=== PATIENT | male | born 1950 | race Caucasian/White ===

== ENCOUNTER 2024-04-18 16:00 | Inpatient (IN) | payer MEDICARE ==
[~2024-04-18] VITALS: Ht 165.1 cm; Wt 77.9 kg
[2024-04-18 17:23] LABS: BASO # 0.1 10^3/uL (0.0-0.2); BASO % 0.4 % (0.0-1.0); EOS % 0.1 % (0.0-3.0); HEMATOCRIT 43.7 % (42.0-52.0); HEMOGLOBIN 14.7 g/dl (13.5-17.5); LYMPH # 0.7 10^3/uL (1.5-5.0); LYMPH % 4.6 % (24.0-44.0); MEAN CORPUSCULAR HEMOGLOBIN 32.2 pg (27.0-33.0); MEAN CORPUSCULAR HGB CONC 33.6 g/dl (32.0-36.5); MEAN CORPUSCULAR VOLUME 95.8 fl (80.0-96.0); MONO % 6.4 % (2.0-8.0); NEUTROPHILS # 13.8 10^3/uL (1.5-8.5); NEUTROPHILS % 87.7 % (36.0-66.0); PLATELET COUNT, AUTOMATED 203 10^3/uL (150-450); RED BLOOD COUNT 4.56 10^6/uL (4.30-6.10); WHITE BLOOD COUNT 15.7 10^3/uL (4.0-10.0)
[2024-04-18 17:24] LABS: ALBUMIN 3.4 G/DL (3.2-5.2); BILIRUBIN,DIRECT 0.3 MG/DL (<0.4); BILIRUBIN,TOTAL 0.9 MG/DL (0.3-1.2); CALCIUM LEVEL 8.8 MG/DL (8.3-10.6); CK-MB VALUE MASS 5.7 NG/ML (<3.6); CREATININE FOR GFR 1.34 MG/DL (0.70-1.30); GLOMERULAR FILTRATION RATE 55.6 (>42); POTASSIUM SERUM 4.3 MMOL/L (3.5-5.1); TOTAL PROTEIN 6.7 G/DL (5.7-8.2)
[2024-04-18 17:27] LABS: FREE T4 1.3 NG/DL (0.89-1.76)
[2024-04-18 17:28] LABS: MB/CK RELATIVE INDEX 1.63 (< OR =4); THYROID STIMULATING HORMONE 0.904 uIU/ML (0.55-4.78)
[2024-04-18] MEDS: fentaNYL 100 MCG/2 ML INJECTION IV ONE (17:39)
[2024-04-18] MEDS: BOOSTRIX VACCINE (TETANUS/DIPHTH/ACEL. PERTUSSIS) 0.5ML SYR IM.IMMUN ONE (18:00)
[2024-04-18] MEDS: METOPROLOL 5 MG/5 ML VIAL IV SCH (18:01)
[2024-04-18] MEDS: METOPROLOL TART 50 MG TAB PO ONE (18:01)
[2024-04-18] MEDS ORDERED: ISOVUE-370 76% 100ML VIAL As Ordered ONE (18:13)
[2024-04-18] MEDS: LOSARTAN 50MG TABLET PO ONE (18:56)
[2024-04-18] MEDS ORDERED: CYAN500T3 PO (19:00)
[2024-04-18] MEDS ORDERED: CENT50TA PO (19:00)
[2024-04-18] MEDS ORDERED: THERTAB19 PO (19:00)
[2024-04-18] MEDS ORDERED: ALEV220T22 PO (19:01)
[2024-04-18] MEDS ORDERED: HOME MED LIST COMPLETE! XX SCH (19:05)
[2024-04-18 20:20] VITALS: BP 132/95
[2024-04-18] MEDS ORDERED: HYDROMORPHONE HCL 0.5 MG/ 0.5 ML SYRINGE IV PRN (20:35)
[2024-04-18] MEDS: IPRATROPIUM 0.5MG/ALBUTEROL 2.5MG INH SOL UD 3ML (DUONEB) NEB PRN (20:42)
[2024-04-18] MEDS: HYDROMORPHONE HCL 0.5 MG/ 0.5 ML SYRINGE IV PRN (20:47)
[2024-04-18] MEDS: NITROGLYCERIN 2% OINT 1 GM *U/D* PKT TOP ONE (20:59)
[2024-04-18] MEDS: FUROSEMIDE 40MG/4ML VIAL IV ONE (20:59)
[2024-04-18] MEDS: NITROGLYCERIN 0.4MG SUBL TABLET SL STA (20:59)
[2024-04-18] MEDS ORDERED: LORazepam 2 MG/ML 1ML VIAL IV PRN (21:00)
[2024-04-18] MEDS ORDERED: LABETALOL 100MG/20ML VIAL IV PRN (21:10)
[2024-04-18] MEDS: DOXYCYCLINE HYCLATE 100 MG in D5W MINI-BAG PLUS 100 ML IV SCH (21:13)
[2024-04-18] MEDS: LORazepam 2 MG/ML 1ML VIAL IV STA (21:13)
[2024-04-18] MEDS: cefTRIAXone SOD 2 GM in D5W MINI-BAG PLUS 50 ML IV ONE (21:14)
[2024-04-18] MEDS: THIAMINE 200MG 2ML VIAL IV SCH (21:17)
[2024-04-18] MEDS: ENOXAPARIN 60MG/0.6ML SYRINGE (J1650 PER 10MG) SC SCH (21:17)
[2024-04-18 21:26] LABS: PROCALCITONIN 0.41 ng/ml
[2024-04-18] MEDS: guaiFENesin ER TABLET 600 MG TAB PO SCH (21:27)
[2024-04-18] MEDS: methylPREDNISolone 40MG 1ML VIAL IV SCH (22:14)
[2024-04-18 22:20] VITALS: BP 132/95; TEMP 97.8; O2SAT 98
[2024-04-18 22:30] VITALS: BP 132/95; O2SAT 97
[2024-04-18 22:39] LABS: INR 1.25; PARTIAL THROMBOPLASTIN TIME 29.6 SECONDS (24.8-34.2); PROTHROMBIN TIME 15.3 SECONDS (12.5-14.5)
[2024-04-18 23:30] VITALS: O2SAT 98
[2024-04-19] VITALS (33 sets, daily range): BP systolic 148–170; BP diastolic 78–102; PULSE 82; TEMP 97–98.4; O2SAT 84–99
[2024-04-19 06:23] LABS: HEMATOCRIT 40.4 % (42.0-52.0); HEMOGLOBIN 13.6 g/dl (13.5-17.5); MEAN CORPUSCULAR HGB CONC 33.7 g/dl (32.0-36.5); MEAN CORPUSCULAR VOLUME 95.1 fl (80.0-96.0); PLATELET COUNT, AUTOMATED 196 10^3/uL (150-450); RED BLOOD COUNT 4.25 10^6/uL (4.30-6.10); WHITE BLOOD COUNT 12.5 10^3/uL (4.0-10.0)
[2024-04-19 07:31] LABS: BILIRUBIN,TOTAL 1.1 MG/DL (0.3-1.2); CALCIUM LEVEL 8.6 MG/DL (8.3-10.6); CREATININE FOR GFR 1.4 MG/DL (0.70-1.30); GLOMERULAR FILTRATION RATE 52.9 (>42); POTASSIUM SERUM 4.4 MMOL/L (3.5-5.1)
[2024-04-19] MEDS ORDERED: ENOXAPARIN 40MG/0.4ML SYRINGE (J1650 PER 10MG) SC SCH (09:00)
[2024-04-19] MEDS ORDERED: METOPROLOL TART 50 MG TAB PO SCH (09:00)
[2024-04-19] MEDS: NICOTINE 21MG/24HR 1 EA TRANSDERMAL TD SCH (10:12)
[2024-04-19] MEDS: FOLIC ACID 1MG TAB PO SCH (10:12)
[2024-04-19] MEDS: PANTOPRAZOLE 40MG TAB (PROTONIX) PO SCH (10:13)
[2024-04-19] MEDS: cefTRIAXone SOD 1 GM in D5W MINI-BAG PLUS 50 ML IV SCH (10:14)
[2024-04-19] MEDS: MULTIVITAMINS/MINERALS THERAP 1 TAB PO SCH (10:14)
[2024-04-19] MEDS: METOPROLOL TART 25 MG TABLET PO SCH (10:32)
[2024-04-19] MEDS: BACITRACIN OINTMENT 30GM TUBE TOP SCH (13:27)
[2024-04-19] MEDS: LORazepam 2 MG TAB PO PRN (16:10)
[2024-04-19] MEDS: TAMSULOSIN 0.4 MG CAP PO SCH (20:47)
[2024-04-20] VITALS (20 sets, daily range): BP systolic 152–174; BP diastolic 94–104; TEMP 97.4–98.6; O2SAT 94–98
[2024-04-20 06:36] LABS: HEMATOCRIT 40.5 % (42.0-52.0); HEMOGLOBIN 13.8 g/dl (13.5-17.5); LYMPH # 1.5 10^3/uL (1.5-5.0); LYMPH % 6.9 % (24.0-44.0); MEAN CORPUSCULAR HEMOGLOBIN 31.9 pg (27.0-33.0); MEAN CORPUSCULAR HGB CONC 34.1 g/dl (32.0-36.5); MEAN CORPUSCULAR VOLUME 93.8 fl (80.0-96.0); MONO # 1.5 10^3/uL (0.0-0.8); NEUTROPHILS % 85.4 % (36.0-66.0); PLATELET COUNT, AUTOMATED 219 10^3/uL (150-450); RED BLOOD COUNT 4.32 10^6/uL (4.30-6.10); WHITE BLOOD COUNT 21.1 10^3/uL (4.0-10.0)
[2024-04-20 06:57] LABS: CALCIUM LEVEL 8.6 MG/DL (8.3-10.6); CREATININE FOR GFR 1.58 MG/DL (0.70-1.30); POTASSIUM SERUM 4.5 MMOL/L (3.5-5.1)
[2024-04-20] MEDS: FUROSEMIDE 40MG/4ML VIAL IV ONE (08:29)
[2024-04-20] MEDS: OXAZEPAM 15MG CAP PO SCH (08:31)
[2024-04-20] MEDS: FUROSEMIDE 40MG/4ML VIAL IV SCH (17:32)
[2024-04-20] MEDS: DOXYCYCLINE HYCLATE 100MG TABLET PO SCH (20:04)
[2024-04-20] MEDS: APIXABAN 5 MG TAB (ELIQUIS) PO SCH (20:05)
[2024-04-20 22:56] LABS: APPEARANCE, URINE CLOUDY (CLEAR); BACTERIA, URINE AUTO NEGATIVE (NEGATIVE); BILIRUBIN, URINE AUTO NEGATIVE (NEGATIVE); BLOOD, URINE BLOOD 2+ (NEGATIVE); COLOR, URINE AMBER (YELLOW); GLUCOSE, URINE (UA) AUTO NEGATIVE (NEGATIVE); KETONE, URINE AUTO NEGATIVE (NEGATIVE); LEUKOCYTE ESTERASE, URINE AUTO NEGATIVE (NEGATIVE); MUCUS, URINE SMALL (NEGATIVE); NITRITE, URINE AUTO NEGATIVE (NEGATIVE); PROTEIN, URINE AUTO 2+ mg/dL (NEGATIVE); RBC, URINE AUTO TNTC /HPF (0-3); SPECIFIC GRAVITY URINE AUTO 1.013 (1.002-1.035); SQUAMOUS EPITHELIAL CELL UR AU 0 /HPF (0-6); UROBILINOGEN, URINE AUTO 0.2 mg/dL (0.0-2.0); WBC, URINE AUTO 0 /HPF (0-3)
[2024-04-21] VITALS (27 sets, daily range): BP systolic 154–182; BP diastolic 84–110; TEMP 97.3–98.3; O2SAT 95–100
[2024-04-21 05:04] LABS: BASO % 0.3 % (0.0-1.0); EOS # 0.1 10^3/uL (0.0-0.5); EOS % 0.5 % (0.0-3.0); HEMATOCRIT 41.3 % (42.0-52.0); LYMPH # 1.6 10^3/uL (1.5-5.0); LYMPH % 12.2 % (24.0-44.0); MEAN CORPUSCULAR HGB CONC 33.9 g/dl (32.0-36.5); MEAN CORPUSCULAR VOLUME 94.5 fl (80.0-96.0); MONO # 1.1 10^3/uL (0.0-0.8); MONO % 8.4 % (2.0-8.0); NEUTROPHILS # 10.5 10^3/uL (1.5-8.5); NEUTROPHILS % 78.2 % (36.0-66.0); PLATELET COUNT, AUTOMATED 219 10^3/uL (150-450); RED BLOOD COUNT 4.37 10^6/uL (4.30-6.10); WHITE BLOOD COUNT 13.4 10^3/uL (4.0-10.0)
[2024-04-21 05:24] LABS: CALCIUM LEVEL 8.6 MG/DL (8.3-10.6); CREATININE FOR GFR 1.94 MG/DL (0.70-1.30); GLOMERULAR FILTRATION RATE 36.3 (>42); POTASSIUM SERUM 4.2 MMOL/L (3.5-5.1)
[2024-04-21 13:32] LABS: PROCALCITONIN 0.55 ng/ml
[2024-04-21] MEDS: CYANOCOBALAMIN 500 MCG TAB PO SCH (17:25)
[2024-04-22] VITALS (16 sets, daily range): BP systolic 124–194; BP diastolic 71–102; TEMP 97.2–97.4; O2SAT 91–99
[2024-04-22 05:21] LABS: BASO # 0.1 10^3/uL (0.0-0.2); BASO % 0.6 % (0.0-1.0); EOS # 0.2 10^3/uL (0.0-0.5); EOS % 1.5 % (0.0-3.0); HEMATOCRIT 41.7 % (42.0-52.0); HEMOGLOBIN 14.1 g/dl (13.5-17.5); LYMPH # 1.1 10^3/uL (1.5-5.0); LYMPH % 10.9 % (24.0-44.0); MEAN CORPUSCULAR HEMOGLOBIN 32.1 pg (27.0-33.0); MEAN CORPUSCULAR HGB CONC 33.8 g/dl (32.0-36.5); MONO # 0.9 10^3/uL (0.0-0.8); MONO % 8.8 % (2.0-8.0); NEUTROPHILS % 77.6 % (36.0-66.0); PLATELET COUNT, AUTOMATED 207 10^3/uL (150-450); RED BLOOD COUNT 4.39 10^6/uL (4.30-6.10); WHITE BLOOD COUNT 10.3 10^3/uL (4.0-10.0)
[2024-04-22 05:37] LABS: CALCIUM LEVEL 8.5 MG/DL (8.3-10.6); CREATININE FOR GFR 1.39 MG/DL (0.70-1.30); GLOMERULAR FILTRATION RATE 53.3 (>42); MAGNESIUM LEVEL 1.8 MG/DL (1.8-2.4); POTASSIUM SERUM 4.2 MMOL/L (3.5-5.1)
[2024-04-22] MEDS: LABETALOL 100MG/20ML VIAL IV PRN (12:27)
[2024-04-22] MEDS: OXAZEPAM 10MG CAP PO SCH (14:49)
[2024-04-23] VITALS (27 sets, daily range): BP systolic 147–178; BP diastolic 77–100; TEMP 97–98.3; O2SAT 94–97
[2024-04-23 06:12] LABS: BASO # 0.1 10^3/uL (0.0-0.2); BASO % 0.6 % (0.0-1.0); EOS # 0.2 10^3/uL (0.0-0.5); EOS % 2.1 % (0.0-3.0); HEMATOCRIT 42.4 % (42.0-52.0); HEMOGLOBIN 14.4 g/dl (13.5-17.5); LYMPH # 1.1 10^3/uL (1.5-5.0); LYMPH % 10.1 % (24.0-44.0); MEAN CORPUSCULAR VOLUME 94.2 fl (80.0-96.0); MONO # 0.9 10^3/uL (0.0-0.8); MONO % 8.7 % (2.0-8.0); NEUTROPHILS # 8.3 10^3/uL (1.5-8.5); NEUTROPHILS % 77.8 % (36.0-66.0); PLATELET COUNT, AUTOMATED 228 10^3/uL (150-450); WHITE BLOOD COUNT 10.7 10^3/uL (4.0-10.0)
[2024-04-23 06:46] LABS: CALCIUM LEVEL 8.4 MG/DL (8.3-10.6); CREATININE FOR GFR 1.39 MG/DL (0.70-1.30); GLOMERULAR FILTRATION RATE 53.3 (>42); MAGNESIUM LEVEL 1.8 MG/DL (1.8-2.4); POTASSIUM SERUM 4.4 MMOL/L (3.5-5.1)
[2024-04-23] MEDS: CARVedilol 12.5 MG TAB PO SCH (10:02)
[2024-04-23] MEDS: OXAZEPAM 10MG CAP PO SCH (14:36)
[2024-04-23] MEDS: MIRALAX *UNIT DOSE* 17GM PACKET PO PRN (14:36)
[2024-04-23] MEDS: BISACODYL 10MG SUPP PR ONE (14:36)
[2024-04-23] MEDS: SENOKOT S TAB PO SCH (20:23)
[2024-04-24] VITALS (20 sets, daily range): BP systolic 146–178; BP diastolic 72–92; TEMP 97.2–98.7; O2SAT 90–97
[2024-04-24] MEDS: PERCOCET 5MG/325MG TAB PO PRN (04:03)
[2024-04-24 06:10] LABS: BASO # 0.1 10^3/uL (0.0-0.2); BASO % 0.6 % (0.0-1.0); EOS # 0.3 10^3/uL (0.0-0.5); HEMATOCRIT 40.2 % (42.0-52.0); HEMOGLOBIN 13.4 g/dl (13.5-17.5); LYMPH # 1.1 10^3/uL (1.5-5.0); LYMPH % 9.6 % (24.0-44.0); MEAN CORPUSCULAR HEMOGLOBIN 31.8 pg (27.0-33.0); MEAN CORPUSCULAR HGB CONC 33.3 g/dl (32.0-36.5); MEAN CORPUSCULAR VOLUME 95.3 fl (80.0-96.0); MONO # 0.9 10^3/uL (0.0-0.8); MONO % 8.2 % (2.0-8.0); NEUTROPHILS # 8.6 10^3/uL (1.5-8.5); NEUTROPHILS % 78.1 % (36.0-66.0); PLATELET COUNT, AUTOMATED 215 10^3/uL (150-450); RED BLOOD COUNT 4.22 10^6/uL (4.30-6.10)
[2024-04-24 06:31] LABS: CALCIUM LEVEL 8.4 MG/DL (8.3-10.6); CREATININE FOR GFR 1.49 MG/DL (0.70-1.30); GLOMERULAR FILTRATION RATE 49.2 (>42); MAGNESIUM LEVEL 2.1 MG/DL (1.8-2.4); POTASSIUM SERUM 4.5 MMOL/L (3.5-5.1)
[2024-04-24] MEDS: NS 1,000 ML IV SCH (07:47)
[2024-04-24] MEDS: CARVedilol 12.5 MG TAB PO SCH ×2 (10:09→20:14)
[2024-04-24] MEDS: OXAZEPAM 10MG CAP PO SCH (17:55)
[2024-04-24] MEDS: MOM 30ML SUSPENSION UDC PO PRN (20:21)
[2024-04-25 03:17] VITALS: BP 170/80; TEMP 97.6
[2024-04-25 03:34] VITALS: BP 159/74
[2024-04-25 07:07] LABS: BASO # 0.1 10^3/uL (0.0-0.2); BASO % 0.8 % (0.0-1.0); EOS # 0.3 10^3/uL (0.0-0.5); EOS % 2.9 % (0.0-3.0); HEMATOCRIT 39.8 % (42.0-52.0); HEMOGLOBIN 13.4 g/dl (13.5-17.5); LYMPH # 1.5 10^3/uL (1.5-5.0); LYMPH % 15.4 % (24.0-44.0); MEAN CORPUSCULAR HEMOGLOBIN 32.1 pg (27.0-33.0); MEAN CORPUSCULAR HGB CONC 33.7 g/dl (32.0-36.5); MEAN CORPUSCULAR VOLUME 95.4 fl (80.0-96.0); MONO # 0.9 10^3/uL (0.0-0.8); MONO % 9.4 % (2.0-8.0); NEUTROPHILS # 6.8 10^3/uL (1.5-8.5); NEUTROPHILS % 71.1 % (36.0-66.0); PLATELET COUNT, AUTOMATED 232 10^3/uL (150-450); RED BLOOD COUNT 4.17 10^6/uL (4.30-6.10); WHITE BLOOD COUNT 9.6 10^3/uL (4.0-10.0)
[2024-04-25 07:30] LABS: CALCIUM LEVEL 8.6 MG/DL (8.3-10.6); CREATININE FOR GFR 1.37 MG/DL (0.70-1.30); GLOMERULAR FILTRATION RATE 54.2 (>42); MAGNESIUM LEVEL 2.3 MG/DL (1.8-2.4); POTASSIUM SERUM 4.4 MMOL/L (3.5-5.1)
[2024-04-25 08:05] VITALS: BP 162/82; TEMP 97.1; O2SAT 98
[2024-04-25 11:44] VITALS: BP 159/79; TEMP 97.5; O2SAT 96
[2024-04-25 16:14] VITALS: BP 158/90; TEMP 97.6; O2SAT 97
[2024-04-25 20:00] VITALS: BP 156/85; TEMP 97.9; O2SAT 96
[2024-04-26] VITALS: BP 147/77; TEMP 97.6; O2SAT 98
[2024-04-26 04:00] VITALS: BP 155/72; TEMP 97.9; O2SAT 94
[2024-04-26 06:51] LABS: BASO # 0.1 10^3/uL (0.0-0.2); BASO % 0.6 % (0.0-1.0); EOS # 0.1 10^3/uL (0.0-0.5); EOS % 1.1 % (0.0-3.0); HEMATOCRIT 40.6 % (42.0-52.0); HEMOGLOBIN 13.9 g/dl (13.5-17.5); LYMPH # 0.9 10^3/uL (1.5-5.0); LYMPH % 8.6 % (24.0-44.0); MEAN CORPUSCULAR HEMOGLOBIN 32.1 pg (27.0-33.0); MEAN CORPUSCULAR HGB CONC 34.2 g/dl (32.0-36.5); MEAN CORPUSCULAR VOLUME 93.8 fl (80.0-96.0); MONO % 8.8 % (2.0-8.0); NEUTROPHILS # 8.6 10^3/uL (1.5-8.5); NEUTROPHILS % 80.3 % (36.0-66.0); PLATELET COUNT, AUTOMATED 226 10^3/uL (150-450); RED BLOOD COUNT 4.33 10^6/uL (4.30-6.10); WHITE BLOOD COUNT 10.7 10^3/uL (4.0-10.0)
[2024-04-26 07:18] LABS: CALCIUM LEVEL 8.3 MG/DL (8.3-10.6); CREATININE FOR GFR 1.33 MG/DL (0.70-1.30); GLOMERULAR FILTRATION RATE 56.1 (>42); MAGNESIUM LEVEL 2.4 MG/DL (1.8-2.4); POTASSIUM SERUM 4.6 MMOL/L (3.5-5.1)
[2024-04-26 08:00] VITALS: BP 146/68; TEMP 97.6; O2SAT 96
[2024-04-26 16:37] VITALS: BP 153/74; TEMP 98; O2SAT 96
[2024-04-26 20:00] VITALS: BP 161/76; TEMP 97.8; O2SAT 98
[2024-04-27] VITALS: BP 142/78; TEMP 96.7; O2SAT 97
[2024-04-27 04:00] VITALS: BP 144/66; TEMP 97.5; O2SAT 96
[2024-04-27 06:17] LABS: BASO # 0.1 10^3/uL (0.0-0.2); BASO % 0.7 % (0.0-1.0); EOS # 0.2 10^3/uL (0.0-0.5); EOS % 2.4 % (0.0-3.0); HEMATOCRIT 37.7 % (42.0-52.0); HEMOGLOBIN 13.1 g/dl (13.5-17.5); LYMPH # 1.3 10^3/uL (1.5-5.0); LYMPH % 15.8 % (24.0-44.0); MEAN CORPUSCULAR HEMOGLOBIN 32.7 pg (27.0-33.0); MEAN CORPUSCULAR HGB CONC 34.7 g/dl (32.0-36.5); MONO # 0.9 10^3/uL (0.0-0.8); MONO % 10.8 % (2.0-8.0); NEUTROPHILS # 5.6 10^3/uL (1.5-8.5); NEUTROPHILS % 69.7 % (36.0-66.0); PLATELET COUNT, AUTOMATED 234 10^3/uL (150-450); RED BLOOD COUNT 4.01 10^6/uL (4.30-6.10)
[2024-04-27 06:33] LABS: CALCIUM LEVEL 8.6 MG/DL (8.3-10.6); CREATININE FOR GFR 1.47 MG/DL (0.70-1.30); MAGNESIUM LEVEL 2.4 MG/DL (1.8-2.4); POTASSIUM SERUM 4.5 MMOL/L (3.5-5.1)
[2024-04-27 08:40] VITALS: BP 145/68; TEMP 98; O2SAT 96
[2024-04-27 14:00] VITALS: BP 137/68; TEMP 97.3; O2SAT 97
[2024-04-27 20:00] VITALS: TEMP 98
[2024-04-27] MEDS: PERCOCET 5MG/325MG TAB PO PRN (20:17)
[2024-04-28 04:00] VITALS: BP 148/64; TEMP 97.3; O2SAT 97
[2024-04-28 06:31] LABS: BASO # 0.1 10^3/uL (0.0-0.2); EOS # 0.3 10^3/uL (0.0-0.5); EOS % 3.2 % (0.0-3.0); HEMATOCRIT 37.7 % (42.0-52.0); LYMPH # 1.6 10^3/uL (1.5-5.0); LYMPH % 19.2 % (24.0-44.0); MEAN CORPUSCULAR HEMOGLOBIN 32.6 pg (27.0-33.0); MEAN CORPUSCULAR HGB CONC 34.5 g/dl (32.0-36.5); MEAN CORPUSCULAR VOLUME 94.5 fl (80.0-96.0); MONO # 0.9 10^3/uL (0.0-0.8); MONO % 10.3 % (2.0-8.0); NEUTROPHILS # 5.5 10^3/uL (1.5-8.5); NEUTROPHILS % 65.8 % (36.0-66.0); PLATELET COUNT, AUTOMATED 250 10^3/uL (150-450); RED BLOOD COUNT 3.99 10^6/uL (4.30-6.10); WHITE BLOOD COUNT 8.4 10^3/uL (4.0-10.0)
[2024-04-28 06:57] LABS: CALCIUM LEVEL 8.2 MG/DL (8.3-10.6); CREATININE FOR GFR 1.3 MG/DL (0.70-1.30); GLOMERULAR FILTRATION RATE 57.6 (>42); MAGNESIUM LEVEL 2.1 MG/DL (1.8-2.4); POTASSIUM SERUM 4.3 MMOL/L (3.5-5.1)
[2024-04-28 07:41] VITALS: BP 136/62; TEMP 97.6; O2SAT 97
[2024-04-28 16:00] VITALS: BP 142/64; TEMP 97.6; O2SAT 95
[2024-04-28 20:29] VITALS: BP 160/80; TEMP 98; O2SAT 95
[2024-04-29 04:19] VITALS: BP 158/74; TEMP 98; O2SAT 97
[2024-04-29 08:45] VITALS: BP 148/80; TEMP 98.4; O2SAT 96
[2024-04-29 16:23] VITALS: BP 152/72; TEMP 97.9; O2SAT 96
[2024-04-29] MEDS: THIAMINE 100 MG TAB PO SCH (20:11)
[2024-04-29 20:14] VITALS: BP 152/82; TEMP 97.7; O2SAT 98
[2024-04-29 21:27] VITALS: BP 144/72; TEMP 97.9; O2SAT 97
[2024-04-30 04:15] VITALS: BP 115/82; TEMP 97.3; O2SAT 97
[2024-04-30 04:45] VITALS: BP 149/81; TEMP 98.1; O2SAT 94
[2024-04-30 08:09] LABS: HEMATOCRIT 36.4 % (42.0-52.0); HEMOGLOBIN 12.6 g/dl (13.5-17.5); MEAN CORPUSCULAR HEMOGLOBIN 32.4 pg (27.0-33.0); MEAN CORPUSCULAR HGB CONC 34.6 g/dl (32.0-36.5); MEAN CORPUSCULAR VOLUME 93.6 fl (80.0-96.0); PLATELET COUNT, AUTOMATED 249 10^3/uL (150-450); RED BLOOD COUNT 3.89 10^6/uL (4.30-6.10); WHITE BLOOD COUNT 9.8 10^3/uL (4.0-10.0)
[2024-04-30 08:36] LABS: ALBUMIN 2.7 G/DL (3.2-5.2); ALKALINE PHOSPHATASE 113 U/L (46-116); ALT/SGPT 12 U/L (7.0-40); AST/SGOT 13 U/L (<34); BILIRUBIN,TOTAL 0.8 MG/DL (0.3-1.2); BLOOD UREA NITROGEN 22 MG/DL (9-23); CALCIUM LEVEL 8.5 MG/DL (8.3-10.6); CARBON DIOXIDE LEVEL 23 MMOL/L (20-31); CHLORIDE LEVEL 107 MMOL/L (98-107); CREATININE FOR GFR 1.18 MG/DL (0.70-1.30); GLOMERULAR FILTRATION RATE > 60.0 (>42); GLUCOSE, FASTING 93 MG/DL (74-106); SODIUM LEVEL 135 MMOL/L (136-145); TOTAL PROTEIN 5.7 G/DL (5.7-8.2)
[2024-04-30 12:00] VITALS: BP 150/80; TEMP 97.5; O2SAT 92
[2024-04-30 20:22] VITALS: BP 154/81; TEMP 97.9; O2SAT 94
[2024-05-01 05:00] VITALS: BP 158/61; TEMP 97.7; O2SAT 95
[2024-05-01 08:20] LABS: BLOOD UREA NITROGEN 20 MG/DL (9-23); CALCIUM LEVEL 8.6 MG/DL (8.3-10.6); CARBON DIOXIDE LEVEL 23 MMOL/L (20-31); CHLORIDE LEVEL 107 MMOL/L (98-107); CREATININE FOR GFR 1.08 MG/DL (0.70-1.30); GLOMERULAR FILTRATION RATE > 60.0 (>42); GLUCOSE, FASTING 87 MG/DL (74-106); MAGNESIUM LEVEL 1.9 MG/DL (1.8-2.4); POTASSIUM SERUM 4.2 MMOL/L (3.5-5.1); SODIUM LEVEL 137 MMOL/L (136-145)
[2024-05-01 12:00] VITALS: BP 138/76; TEMP 98.1; O2SAT 95
[2024-05-01 20:00] VITALS: BP 140/78; TEMP 97.9; O2SAT 96
[2024-05-01 20:36] VITALS: BP 146/81; TEMP 98.2; O2SAT 96
[2024-05-02 04:58] VITALS: BP 148/80; TEMP 97.7; O2SAT 97
[2024-05-02 12:00] VITALS: BP 158/82; TEMP 97.2; O2SAT 95
[2024-05-02 20:00] VITALS: BP 159/84; TEMP 97.7; O2SAT 95
[2024-05-02] MEDS: ACETAMINOPHEN TAB 650MG DOSE (2X325MG) PO PRN (20:57)
[2024-05-03 04:00] VITALS: BP 161/83; TEMP 98.1; O2SAT 93
[2024-05-03 12:00] VITALS: BP 139/68; TEMP 97.5; O2SAT 95
[2024-05-03 20:57] VITALS: BP 148/91; TEMP 97.5; O2SAT 97
[2024-05-04 04:00] VITALS: BP 147/86; TEMP 97.5; O2SAT 96
[2024-05-04 12:00] VITALS: BP 135/72; TEMP 97.7; O2SAT 98
[2024-05-04] MEDS: LOSARTAN 25 MG TAB PO SCH (13:34)
[2024-05-04 19:41] VITALS: BP 140/75; TEMP 97.5; O2SAT 96
[2024-05-05 04:09] VITALS: BP 141/76; TEMP 97.7; O2SAT 93
[2024-05-05 12:00] VITALS: BP 124/62; TEMP 97.9; O2SAT 95
[2024-05-05 20:20] VITALS: BP 139/74; TEMP 97.5; O2SAT 97
[2024-05-05] MEDS: LOSARTAN 25 MG TAB PO SCH (20:39)
[2024-05-06 04:09] VITALS: BP 134/78; TEMP 97.2; O2SAT 96
[2024-05-06 12:00] VITALS: BP 125/73; TEMP 97.3; O2SAT 98
[2024-05-06 20:00] VITALS: BP 129/74; TEMP 98.1; O2SAT 98
[2024-05-07 04:00] VITALS: BP 120/72; TEMP 98.1; O2SAT 97
[2024-05-07 12:00] VITALS: BP 142/76; TEMP 97.7; O2SAT 98
[2024-05-07 20:00] VITALS: BP 136/72; TEMP 97.9; O2SAT 98
[2024-05-08 04:00] VITALS: BP 138/73; TEMP 97.7; O2SAT 95
[2024-05-09 04:00] VITALS: BP 141/73; TEMP 97.9; O2SAT 96
[2024-05-09 09:10] VITALS: BP 143/75
[2024-05-09] MEDS ORDERED: PERCOCET PO (10:49)
[2024-05-09] MEDS ORDERED: FLOM0.4C39 PO (10:49)
[2024-05-09] MEDS ORDERED: SENN-52 PO (10:49)
[2024-05-09] MEDS ORDERED: CARV12.5 PO (10:49)
[2024-05-09] MEDS ORDERED: MUCI600T31 PO (10:49)
[2024-05-09] MEDS ORDERED: THIA100TA PO (10:49)
[2024-05-09] MEDS ORDERED: AMLO1TAB25 PO (10:49)
[2024-05-09] MEDS ORDERED: PANT40TA29 PO (10:49)
[2024-05-09] MEDS ORDERED: FOLI1TAB11 PO (10:49)
[2024-05-09] MEDS ORDERED: BACI50OI TOP (10:49)
[2024-05-09] MEDS ORDERED: NICO21PAT TD (10:49)
[2024-05-09] MEDS ORDERED: LOSA-527 PO (10:49)
[2024-05-09] MEDS ORDERED: ELIQ5TAB PO (10:49)
[2024-05-09] MEDS ORDERED: MULT-90 PO (10:50)
== END 2024-05-09 13:34 | DRG 183 ==
LOC: EDBD 16:00 → M ED 16:00 → M ED INP 20:27 → M PCU 22:29 → M MSPAV 04-29 21:18
PROVIDERS: ADMIT Preventive Medicine Undersea and Hyperbaric Medicine; ATTEND General Practice
DX: S22.41XA Multiple fractures of ribs, right side, initial encounter for closed fracture (principal); J96.01 Acute respiratory failure with hypoxia; J18.9 Pneumonia, unspecified organism; I24.89 Other forms of acute ischemic heart disease; J44.1 Chronic obstructive pulmonary disease with (acute) exacerbation; J44.0 Chronic obstructive pulmonary disease with (acute) lower respiratory infection; I16.1 Hypertensive emergency; F10.239 Alcohol dependence with withdrawal, unspecified; N17.9 Acute kidney failure, unspecified; I13.0 Hypertensive heart and chronic kidney disease with heart failure and stage 1 through stage 4 chronic kidney disease, or unspecified chronic kidney disease; I50.32 Chronic diastolic (congestive) heart failure; N18.30 Chronic kidney disease, stage 3 unspecified; R26.89 Other abnormalities of gait and mobility; R29.6 Repeated falls; S42.002A Fracture of unspecified part of left clavicle, initial encounter for closed fracture; R33.9 Retention of urine, unspecified; F17.200 Nicotine dependence, unspecified, uncomplicated; W19.XXXA Unspecified fall, initial encounter; Y93.9 Activity, unspecified; Y92.9 Unspecified place or not applicable; Y99.9 Unspecified external cause status; Z88.8 Allergy status to other drugs, medicaments and biological substances

== ENCOUNTER → 2024-05-20 | Outpatient (REF) | payer MEDICARE ==
[~2024-05-20] MED LIST: ALEV220T22 PO; AMLO1TAB25 PO; BACI50OI TOP; CARV12.5 PO; CENT50TA PO; CYAN500T3 PO; ELIQ5TAB PO; FLOM0.4C39 PO; FOLI1TAB11 PO; LOSA-527 PO; MUCI600T31 PO; MULT-90 PO; NICO21PAT TD; PANT40TA29 PO; PERCOCET PO; SENN-52 PO; THERTAB19 PO; THIA100TA PO
[2024-05-20 13:41] LABS: HEMATOCRIT 30.8 % (42.0-52.0); HEMOGLOBIN 10.5 g/dl (13.5-17.5); MEAN CORPUSCULAR HEMOGLOBIN 32.4 pg (27.0-33.0); MEAN CORPUSCULAR HGB CONC 34.1 g/dl (32.0-36.5); MEAN CORPUSCULAR VOLUME 95.1 fl (80.0-96.0); PLATELET COUNT, AUTOMATED 167 10^3/uL (150-450); RED BLOOD COUNT 3.24 10^6/uL (4.30-6.10); WHITE BLOOD COUNT 6.7 10^3/uL (4.0-10.0)
[2024-05-20 14:08] LABS: CALCIUM LEVEL 8.2 MG/DL (8.3-10.6); CREATININE FOR GFR 1.42 MG/DL (0.70-1.30); POTASSIUM SERUM 4.1 MMOL/L (3.5-5.1)
== END ==
LOC: SKLAB2 10:51
PROVIDERS: ATTEND Internal Medicine
DX: I10 Essential (primary) hypertension (principal)

== ENCOUNTER → 2024-05-23 | Outpatient (REF) | payer MEDICARE ==
[2024-05-23 13:03] LABS: HEMATOCRIT 33.2 % (42.0-52.0); HEMOGLOBIN 11.5 g/dl (13.5-17.5); MEAN CORPUSCULAR HEMOGLOBIN 32.4 pg (27.0-33.0); MEAN CORPUSCULAR HGB CONC 34.6 g/dl (32.0-36.5); MEAN CORPUSCULAR VOLUME 93.5 fl (80.0-96.0); PLATELET COUNT, AUTOMATED 205 10^3/uL (150-450); RED BLOOD COUNT 3.55 10^6/uL (4.30-6.10); WHITE BLOOD COUNT 6.9 10^3/uL (4.0-10.0)
[2024-05-23 13:31] LABS: CALCIUM LEVEL 8.2 MG/DL (8.3-10.6); CREATININE FOR GFR 1.27 MG/DL (0.70-1.30); FERRITIN 276.2 NG/ML (10.5-307.3); GLOMERULAR FILTRATION RATE 59.2 (>42); PERCENT SATURATION 20.9 % (19.7-50.0); POTASSIUM SERUM 4.2 MMOL/L (3.5-5.1)
[2024-05-23 13:48] LABS: HEMOGLOBIN A1c 5.3 % (4.0-6.0)
== END ==
LOC: SKLAB2 12:13
PROVIDERS: ATTEND Internal Medicine
DX: R73.01 Impaired fasting glucose (principal); I10 Essential (primary) hypertension; D64.9 Anemia, unspecified

== ENCOUNTER 2024-05-29 16:22 | Emergency (ER) | payer MEDICARE ==
[~2024-05-29] VITALS: Ht 165.1 cm; Wt 58.0 kg
[2024-05-29 16:28] VITALS: TEMP 97.3
[2024-05-29 17:52] VITALS: O2SAT 96
[2024-05-29 18:00] VITALS: BP 165/72
[2024-05-30] MEDS ORDERED: MULT-40 PO (08:09)
[2024-05-30] MEDS ORDERED: ELIQ5TAB PO (08:09)
[2024-05-30] MEDS ORDERED: ASCO500T PO (08:09)
[2024-05-30] MEDS ORDERED: LIDO5DIS41 TOP (08:09)
[2024-05-30] MEDS ORDERED: BISA10SU27 PR (08:09)
[2024-05-30] MEDS ORDERED: AMMO12CR7 TOP (08:09)
[2024-05-30] MEDS ORDERED: LOSA50TA28 PO (08:09)
[2024-05-30] MEDS ORDERED: PANT40TA29 PO (08:09)
[2024-05-30] MEDS ORDERED: FLOM0.4C39 PO (08:09)
[2024-05-30] MEDS ORDERED: FERR325T3 PO (08:09)
[2024-05-30] MEDS ORDERED: FOLI1TAB11 PO (08:09)
[2024-05-30] MEDS ORDERED: PERM5CRE9 TOP (08:09)
[2024-05-30] MEDS ORDERED: THIA100T7 PO (08:09)
[2024-05-30] MEDS ORDERED: LOPE1CAP5 PO (08:09)
[2024-05-30] MEDS ORDERED: SENN1TAB85 PO (08:09)
[2024-05-30] MEDS ORDERED: B-12100021 PO (08:09)
[2024-05-30] MEDS ORDERED: AMLO1TAB25 PO (08:09)
[2024-05-30] MEDS ORDERED: CARV25TA PO (08:09)
[2024-05-30] MEDS ORDERED: VANI1CRE5 TOP (08:09)
[2024-05-30] MEDS ORDERED: GABA-1171 PO (08:09)
[2024-05-30] MEDS ORDERED: FLEEENE12 PR (08:09)
[2024-05-30] MEDS ORDERED: MILKSUS3 PO (08:09)
[2024-05-30] MEDS ORDERED: APAP325T4 PO (08:09)
[2024-05-30] MEDS ORDERED: SERT-141 PO (08:09)
== END 2024-05-29 18:04 | disposition home or self-care (01) ==
LOC: M ED 16:22
DX: S00.93XA Contusion of unspecified part of head, initial encounter (principal); Y92.9 Unspecified place or not applicable; Y93.9 Activity, unspecified; Y99.9 Unspecified external cause status; I10 Essential (primary) hypertension; Z88.8 Allergy status to other drugs, medicaments and biological substances; Z79.1 Long term (current) use of non-steroidal anti-inflammatories (NSAID); Z79.01 Long term (current) use of anticoagulants; Z79.810 Long term (current) use of selective estrogen receptor modulators (SERMs); Z79.899 Other long term (current) drug therapy

== ENCOUNTER 2024-05-30 06:41 | Emergency (ER) | payer MEDICARE ==
[~2024-05-30] VITALS: Ht 154.9 cm; Wt 67.7 kg
[~2024-05-30 06:41] MED LIST changes: -AMMO12CR7 TOP; -APAP325T4 PO; -ASCO500T PO; -B-12100021 PO; -BISA10SU27 PR; -CARV25TA PO; -FERR325T3 PO; -FLEEENE12 PR; -GABA-1171 PO; -LIDO5DIS41 TOP; -LOPE1CAP5 PO; -LOSA50TA28 PO; -MILKSUS3 PO; -MULT-40 PO; -PERM5CRE9 TOP; -SENN1TAB85 PO; -SERT-141 PO; -THIA100T7 PO; -VANI1CRE5 TOP
[2024-05-30 08:09] LABS: BASO # 0.1 10^3/uL (0.0-0.2); BASO % 0.8 % (0.0-1.0); EOS # 0.1 10^3/uL (0.0-0.5); EOS % 1.9 % (0.0-3.0); HEMATOCRIT 30.1 % (42.0-52.0); HEMOGLOBIN 10.2 g/dl (13.5-17.5); LYMPH # 1.5 10^3/uL (1.5-5.0); LYMPH % 23.8 % (24.0-44.0); MEAN CORPUSCULAR HGB CONC 33.9 g/dl (32.0-36.5); MEAN CORPUSCULAR VOLUME 94.4 fl (80.0-96.0); MONO # 0.8 10^3/uL (0.0-0.8); MONO % 12.2 % (2.0-8.0); NEUTROPHILS # 3.8 10^3/uL (1.5-8.5); NEUTROPHILS % 61.1 % (36.0-66.0); PLATELET COUNT, AUTOMATED 218 10^3/uL (150-450); RED BLOOD COUNT 3.19 10^6/uL (4.30-6.10); WHITE BLOOD COUNT 6.2 10^3/uL (4.0-10.0)
[2024-05-30] MEDS ORDERED: B-12100021 PO (08:09)
[2024-05-30] MEDS ORDERED: AMMO12CR7 TOP (08:09)
[2024-05-30] MEDS ORDERED: ELIQ5TAB PO (08:09)
[2024-05-30] MEDS ORDERED: LOSA50TA28 PO (08:09)
[2024-05-30] MEDS ORDERED: CARV25TA PO (08:09)
[2024-05-30] MEDS ORDERED: SERT-141 PO (08:09)
[2024-05-30] MEDS ORDERED: FLEEENE12 PR (08:09)
[2024-05-30] MEDS ORDERED: AMLO1TAB25 PO (08:09)
[2024-05-30] MEDS ORDERED: THIA100T7 PO (08:09)
[2024-05-30] MEDS ORDERED: FERR325T3 PO (08:09)
[2024-05-30] MEDS ORDERED: PANT40TA29 PO (08:09)
[2024-05-30] MEDS ORDERED: LOPE1CAP5 PO (08:09)
[2024-05-30] MEDS ORDERED: GABA-1171 PO (08:09)
[2024-05-30] MEDS ORDERED: LIDO5DIS41 TOP (08:09)
[2024-05-30] MEDS ORDERED: MULT-40 PO (08:09)
[2024-05-30] MEDS ORDERED: MILKSUS3 PO (08:09)
[2024-05-30] MEDS ORDERED: PERM5CRE9 TOP (08:09)
[2024-05-30] MEDS ORDERED: VANI1CRE5 TOP (08:09)
[2024-05-30] MEDS ORDERED: FLOM0.4C39 PO (08:09)
[2024-05-30] MEDS ORDERED: APAP325T4 PO (08:09)
[2024-05-30] MEDS ORDERED: ASCO500T PO (08:09)
[2024-05-30] MEDS ORDERED: SENN1TAB85 PO (08:09)
[2024-05-30] MEDS ORDERED: BISA10SU27 PR (08:09)
[2024-05-30] MEDS ORDERED: FOLI1TAB11 PO (08:09)
[2024-05-30] MEDS ORDERED: HOME MED LIST COMPLETE! XX SCH (08:10)
[2024-05-30 08:11] LABS: CALCIUM LEVEL 8.3 MG/DL (8.3-10.6); CREATININE FOR GFR 1.32 MG/DL (0.70-1.30); GLOMERULAR FILTRATION RATE 56.6 (>42)
[2024-05-30 09:46] VITALS: BP 165/73; TEMP 97; O2SAT 95
== END 2024-05-30 10:18 | disposition home or self-care (01) ==
LOC: M ED 06:41
DX: Z71.1 Person with feared health complaint in whom no diagnosis is made (principal); I48.91 Unspecified atrial fibrillation; I10 Essential (primary) hypertension; E78.5 Hyperlipidemia, unspecified; F10.10 Alcohol abuse, uncomplicated; Z87.891 Personal history of nicotine dependence; Z88.8 Allergy status to other drugs, medicaments and biological substances; Z79.1 Long term (current) use of non-steroidal anti-inflammatories (NSAID); Z79.01 Long term (current) use of anticoagulants; Z79.810 Long term (current) use of selective estrogen receptor modulators (SERMs); Z79.899 Other long term (current) drug therapy

== ENCOUNTER → 2024-05-30 | Outpatient (REF) ==
[~2024-05-30] MED LIST changes: +AMMO12CR7 TOP; +APAP325T4 PO; +ASCO500T PO; +B-12100021 PO; +BISA10SU27 PR; +CARV25TA PO; +FERR325T3 PO; +FLEEENE12 PR; +GABA-1171 PO; +LIDO5DIS41 TOP; +LOPE1CAP5 PO; +LOSA50TA28 PO; +MILKSUS3 PO; +MULT-40 PO; +PERM5CRE9 TOP; +SENN1TAB85 PO; +SERT-141 PO; +THIA100T7 PO; +VANI1CRE5 TOP
[2024-05-30 13:23] LABS: APPEARANCE, URINE HAZY (CLEAR); BACTERIA, URINE AUTO NEGATIVE (NEGATIVE); BILIRUBIN, URINE AUTO NEGATIVE (NEGATIVE); BLOOD, URINE BLOOD NEGATIVE (NEGATIVE); COLOR, URINE YELLOW (YELLOW); GLUCOSE, URINE (UA) AUTO NEGATIVE (NEGATIVE); KETONE, URINE AUTO TRACE mg/dL (NEGATIVE); LEUKOCYTE ESTERASE, URINE AUTO 1+ (NEGATIVE); MUCUS, URINE SMALL (NEGATIVE); NITRITE, URINE AUTO NEGATIVE (NEGATIVE); PROTEIN, URINE AUTO NEGATIVE (NEGATIVE); RBC, URINE AUTO 1 /HPF (0-3); SPECIFIC GRAVITY URINE AUTO 1.016 (1.002-1.035); SQUAMOUS EPITHELIAL CELL UR AU 0 /HPF (0-6); UROBILINOGEN, URINE AUTO 0.2 mg/dL (0.0-2.0); WBC, URINE AUTO 11 /HPF (0-3)
== END ==
LOC: SKLAB2 11:28
PROVIDERS: ATTEND Internal Medicine
DX: R50.9 Fever, unspecified (principal); R30.0 Dysuria

== ENCOUNTER → 2024-06-01 | Outpatient (REF) | payer MEDICARE ==
[~2024-06-01] MED LIST changes: +AMMO12CR7 TOP; +APAP325T4 PO; +ASCO500T PO; +B-12100021 PO; +BISA10SU27 PR; +CARV25TA PO; +FERR325T3 PO; +FLEEENE12 PR; +GABA-1171 PO; +LIDO5DIS41 TOP; +LOPE1CAP5 PO; +LOSA50TA28 PO; +MILKSUS3 PO; +MULT-40 PO; +PERM5CRE9 TOP; +SENN1TAB85 PO; +SERT-141 PO; +THIA100T7 PO; +VANI1CRE5 TOP
[2024-06-01 12:23] LABS: BASO # 0.1 10^3/uL (0.0-0.2); BASO % 0.8 % (0.0-1.0); EOS # 0.2 10^3/uL (0.0-0.5); EOS % 2.5 % (0.0-3.0); HEMATOCRIT 30.9 % (42.0-52.0); HEMOGLOBIN 10.6 g/dl (13.5-17.5); LYMPH # 1.2 10^3/uL (1.5-5.0); LYMPH % 16.4 % (24.0-44.0); MEAN CORPUSCULAR HEMOGLOBIN 32.4 pg (27.0-33.0); MEAN CORPUSCULAR HGB CONC 34.3 g/dl (32.0-36.5); MEAN CORPUSCULAR VOLUME 94.5 fl (80.0-96.0); MONO # 0.8 10^3/uL (0.0-0.8); MONO % 11.8 % (2.0-8.0); NEUTROPHILS # 4.8 10^3/uL (1.5-8.5); NEUTROPHILS % 68.1 % (36.0-66.0); PLATELET COUNT, AUTOMATED 197 10^3/uL (150-450); RED BLOOD COUNT 3.27 10^6/uL (4.30-6.10); WHITE BLOOD COUNT 7.1 10^3/uL (4.0-10.0)
[2024-06-01 12:47] LABS: BLOOD UREA NITROGEN 10 MG/DL (9-23); CALCIUM LEVEL 8.4 MG/DL (8.3-10.6); CARBON DIOXIDE LEVEL 24 MMOL/L (20-31); CHLORIDE LEVEL 105 MMOL/L (98-107); CREATININE FOR GFR 1.17 MG/DL (0.70-1.30); GLOMERULAR FILTRATION RATE > 60.0 (>42); GLUCOSE, FASTING 82 MG/DL (74-106); POTASSIUM SERUM 3.9 MMOL/L (3.5-5.1); SODIUM LEVEL 134 MMOL/L (136-145)
== END ==
LOC: SKLAB2 11:18
PROVIDERS: ATTEND Internal Medicine
DX: I50.9 Heart failure, unspecified (principal); J18.9 Pneumonia, unspecified organism; D64.9 Anemia, unspecified

== ENCOUNTER → 2024-06-01 | Outpatient (REF) | payer MEDICARE | LOC: SKLAB2 14:37 | PROVIDERS: ATTEND Internal Medicine | DX: D64.9 Anemia, unspecified (principal) ==

== ENCOUNTER → 2024-06-03 | Outpatient (REF) ==
[2024-06-03 14:27] LABS: BASO # 0.1 10^3/uL (0.0-0.2); BASO % 0.8 % (0.0-1.0); EOS # 0.2 10^3/uL (0.0-0.5); EOS % 2.4 % (0.0-3.0); HEMATOCRIT 33.1 % (42.0-52.0); HEMOGLOBIN 11.5 g/dl (13.5-17.5); LYMPH # 1.2 10^3/uL (1.5-5.0); LYMPH % 16.3 % (24.0-44.0); MEAN CORPUSCULAR HEMOGLOBIN 32.4 pg (27.0-33.0); MEAN CORPUSCULAR HGB CONC 34.7 g/dl (32.0-36.5); MEAN CORPUSCULAR VOLUME 93.2 fl (80.0-96.0); MONO # 0.8 10^3/uL (0.0-0.8); MONO % 11.4 % (2.0-8.0); NEUTROPHILS # 4.9 10^3/uL (1.5-8.5); NEUTROPHILS % 68.8 % (36.0-66.0); PLATELET COUNT, AUTOMATED 208 10^3/uL (150-450); RED BLOOD COUNT 3.55 10^6/uL (4.30-6.10); WHITE BLOOD COUNT 7.1 10^3/uL (4.0-10.0)
[2024-06-03 14:49] LABS: BLOOD UREA NITROGEN 8 MG/DL (9-23); CALCIUM LEVEL 8.9 MG/DL (8.3-10.6); CARBON DIOXIDE LEVEL 28 MMOL/L (20-31); CHLORIDE LEVEL 102 MMOL/L (98-107); CREATININE FOR GFR 1.14 MG/DL (0.70-1.30); GLOMERULAR FILTRATION RATE > 60.0 (>42); GLUCOSE, FASTING 154 MG/DL (74-106); POTASSIUM SERUM 3.8 MMOL/L (3.5-5.1); SODIUM LEVEL 134 MMOL/L (136-145)
== END ==
LOC: SKLAB2 10:34
PROVIDERS: ATTEND Internal Medicine
DX: J18.9 Pneumonia, unspecified organism (principal)

== ENCOUNTER → 2024-06-03 | Outpatient (CLI) | payer MEDICARE | LOC: M RAD 11:00 | PROVIDERS: ATTEND Internal Medicine | DX: J18.9 Pneumonia, unspecified organism (principal) ==

== ENCOUNTER → 2024-06-06 | Outpatient (REF) ==
[2024-06-06 08:35] LABS: BASO # 0.1 10^3/uL (0.0-0.2); BASO % 0.9 % (0.0-1.0); EOS # 0.2 10^3/uL (0.0-0.5); EOS % 3.1 % (0.0-3.0); HEMATOCRIT 37.2 % (42.0-52.0); HEMOGLOBIN 12.9 g/dl (13.5-17.5); LYMPH # 1.4 10^3/uL (1.5-5.0); LYMPH % 21.9 % (24.0-44.0); MEAN CORPUSCULAR HEMOGLOBIN 31.9 pg (27.0-33.0); MEAN CORPUSCULAR HGB CONC 34.7 g/dl (32.0-36.5); MEAN CORPUSCULAR VOLUME 92.1 fl (80.0-96.0); MONO # 0.8 10^3/uL (0.0-0.8); MONO % 11.8 % (2.0-8.0); NEUTROPHILS # 4.1 10^3/uL (1.5-8.5); NEUTROPHILS % 62.1 % (36.0-66.0); PLATELET COUNT, AUTOMATED 225 10^3/uL (150-450); RED BLOOD COUNT 4.04 10^6/uL (4.30-6.10); WHITE BLOOD COUNT 6.5 10^3/uL (4.0-10.0)
[2024-06-06 09:02] LABS: BLOOD UREA NITROGEN 13 MG/DL (9-23); CALCIUM LEVEL 9.3 MG/DL (8.3-10.6); CARBON DIOXIDE LEVEL 26 MMOL/L (20-31); CHLORIDE LEVEL 102 MMOL/L (98-107); CREATININE FOR GFR 1.25 MG/DL (0.70-1.30); GLOMERULAR FILTRATION RATE > 60.0 (>42); GLUCOSE, FASTING 90 MG/DL (74-106); SODIUM LEVEL 134 MMOL/L (136-145)
== END ==
LOC: SKLAB2 06:49
PROVIDERS: ATTEND Internal Medicine
DX: J18.9 Pneumonia, unspecified organism (principal)